=== PATIENT | male | born 1930 | race Hispanic/Latino ===

== ENCOUNTER → 2019-09-27 | Day surgery (SDC) | payer MEDICARE, BC ==
[~2019-09-27] MED LIST: AMLODIPINE BESYL5 MG PO; ASPIR 8181 MG PO; CEPACOL SORE THROAT LOZENGES PO ONE; FLOMAX0.4 MG PO; KETAMINE HCL INJ 50 MG/ML 10 ML VIAL ONE; PANTOPRAZOLE 40 MG 10ML VIAL ONE; PROPOFOL IV EMULSION 10 MG/ML 50 ML VIAL ONE
[2019-09-27 13:52] LABS: BASOPHILS # (AUTO) 0.1 (0.0-0.1); BASOPHILS % 0.8 % (0.0-1.0); EOSINOPHILS # (AUTO) 0.1 (0.0-0.4); EOSINOPHILS % 1.9 % (0.0-6.0); HEMATOCRIT 42.3 % (38.2-49.6); HEMOGLOBIN 14.3 g/dL (14.0-18.0); LYMPHOCYTES # (AUTO) 1.6 (1.0-3.2); LYMPHOCYTES % 21.9 % (18.0-39.1); MEAN CORPUSCULAR HEMOGLOBIN 29.5 pg (28-32); MEAN CORPUSCULAR HGB CONC 33.8 g/dL (31-35); MEAN CORPUSCULAR VOLUME 87.2 fL (81-99); MONOCYTES # (AUTO) 0.6 (0.2-0.8); MONOCYTES % 8.5 % (4.4-11.3); NEUTROPHILS # (AUTO) 4.9 (2.1-6.9); NEUTROPHILS % 66.5 % (38.7-80.0); PLATELET COUNT 203 x10e3/uL (140-360); RED BLOOD COUNT 4.85 x10e6/uL (4.3-5.7); RED CELL DISTRIBUTION WIDTH 14.5 % (11.7-14.4)
[2019-09-27 18:05] VITALS: BP 161/83
--- NOTE | 2019-09-27 23:50 | Operative Report ---
DATE OF PROCEDURE: 09/27/2019 SURGEON: Mario Rodríguez MD PROCEDURE: EGD with biopsies. INDICATIONS FOR EGD: Acid reflux. MEDICATIONS: The patient was done under MAC, please see anesthesiologist's note. PROCEDURE IN DETAIL: With the patient in lateral decubitus position, a flexible fiberoptic Olympus gastroscope was introduced into the esophagus under direct visualization without any difficulty. Two erosions were noted in the distal esophagus and the scope was then advanced with ease into the stomach traversing a small sliding hiatal hernia. Mucosa overlying the antrum and the body revealed some patchy erythema and low-grade to moderate edema. Biopsies were obtained and sent to stain for H pylori. Pylorus was of normal contour and shape was intubated with ease and the scope was advanced all the way to the second portion of the duodenum. The scope was then withdrawn slowly, mucosa overlying the proximal second portion and duodenal bulb grossly appeared to be within normal limits. The scope was then withdrawn back into the stomach and retroflexed, mucosa overlying the fundus and the cardia appeared to be within normal limits. The scope was then straightened out, it was subsequently withdrawn. The patient tolerated procedure well. IMPRESSION: 1. Erosive esophagitis. 2. Small sliding hiatal hernia. 3. Gastritis, biopsied, biopsies sent to stain for H pylori. PLAN: Follow up histology. Initiate Protonix 40 mg one p.o. q.a.m. a.c. Mario Rodríguez MD [facility] [place]/[facility] /[id number] cc: Mario Rodríguez MD
== END | disposition home or self-care (01) ==
LOC: OR 12:49
PROVIDERS: ATTEND Internal Medicine Gastroenterology
DX: K21.0 Gastro-esophageal reflux disease with esophagitis (principal); K29.50 Unspecified chronic gastritis without bleeding; K22.10 Ulcer of esophagus without bleeding; K44.9 Diaphragmatic hernia without obstruction or gangrene; I10 Essential (primary) hypertension; Z85.46 Personal history of malignant neoplasm of prostate; Z95.1 Presence of aortocoronary bypass graft; Z88.8 Allergy status to other drugs, medicaments and biological substances; I25.10 Atherosclerotic heart disease of native coronary artery without angina pectoris; Z01.810 Encounter for preprocedural cardiovascular examination; Z01.812 Encounter for preprocedural laboratory examination
CPT/HCPCS: 36415; 43239; 85025; 88305; 88312; 93005; C9113; J2704

== ENCOUNTER → 2020-06-13 | Outpatient (CLI) | payer MEDICARE, BC ==
[~2020-06-13] MED LIST changes: -CEPACOL SORE THROAT LOZENGES PO ONE; -KETAMINE HCL INJ 50 MG/ML 10 ML VIAL ONE; -PANTOPRAZOLE 40 MG 10ML VIAL ONE; -PROPOFOL IV EMULSION 10 MG/ML 50 ML VIAL ONE
--- NOTE | 2020-06-13 15:31 | Diagnostic Imaging Report ---
CT of the abdomen and pelvis, without contrast, 06/13/2020. History: Abdominal pain and bloating. Comparison: None available. Technique: Multidetector CT scanning of the abdomen and pelvis was performed from the level of the lung bases to the inferior pubic rami without intravenous or oral contrast. Coronal and sagittal multiplanar reformations were obtained. RADIATION DOSE: Total DLP: 207 mGy*cm Dose modulation, iterative reconstruction, and/or weight based adjustment of the mA/kV was utilized to reduce the radiation dose to as low as reasonably achievable. Discussion: Examination is limited without contrast. Lung bases: No visualized abnormalities. Abdomen: Cholecystectomy clips are present. Multiple simple bilateral renal cysts are present, the largest on the right measuring 6.2 cm and the largest on the left measuring 4.8 cm. The liver, biliary tree, spleen, pancreas, and adrenal glands are unremarkable. The abdominal aorta is mildly calcified but within normal limits for size. There is no bowel dilatation. There is no evidence of adenopathy or free fluid. A fat-containing supraumbilical ventral hernia is present with a 3 cm base. Pelvis: The bladder and prostate are unremarkable. There is no evidence of free fluid or adenopathy. Fat-containing inguinal hernias are present bilaterally. Bones and soft tissues: Degenerative changes are present throughout the lumbar spine without evidence of lytic or sclerotic lesion. IMPRESSION: 1. Bilateral benign appearing renal cysts. 2. Fat-containing ventral and inguinal hernias. 3. Status post cholecystectomy. Otherwise unremarkable noncontrast exam. Signed by: Rufino Godfrey on 06/13/2020 3:28 PM
== END ==
LOC: CT 13:32
PROVIDERS: ATTEND Internal Medicine Gastroenterology
DX: R10.84 Generalized abdominal pain (principal)
CPT/HCPCS: 74176

== ENCOUNTER 2020-12-24 15:27 | Inpatient (IN) | payer MEDICARE, BC ==
[~2020-12-24] VITALS: Ht 162.6 cm; Wt 74.8 kg
[2020-12-24] MEDS ORDERED: DIATRIZOATE MEGL/DIATRIZOA SOD 30 ML BTL PO ONE (15:58)
[2020-12-24] MEDS ORDERED: HYDROCHLOROTHIA25 MG (16:05)
[2020-12-24] MEDS ORDERED: FAMOTIDINE 20 MG/2 ML VIAL IV STA (16:31)
[2020-12-24] MEDS ORDERED: ONDANSETRON HCL INJ 2MG/ML 2ML 2 MG/ML VIAL IV STA (16:31)
[2020-12-24] MEDS ORDERED: MORPHINE SULFATE INJ 2 MG/ML SYR IV STA (16:31)
[2020-12-24] MEDS ORDERED: SODIUM CHLORIDE 0.9% 1000ML 1,000 ML IV SCH (16:45)
[2020-12-24] MEDS ORDERED: SODIUM CHLORIDE 0.9% 1000ML 1,000 ML ONE (16:55)
[2020-12-24] MEDS ORDERED: MORPHINE SULFATE INJ 4 MG/ML INJ 1ML ONE (16:55)
[2020-12-24] MEDS ORDERED: ONDANSETRON HCL INJ 2MG/ML 2ML 2 MG/ML VIAL ONE (16:55)
[2020-12-24] MEDS ORDERED: FAMOTIDINE 20 MG/2 ML VIAL IV ONE (16:55)
[2020-12-24 20:23] VITALS: BP 150/92
[2020-12-24] MEDS: SODIUM CHLORIDE 0.9% 1000ML 1,000 ML IV SCH (21:06)
[2020-12-24] MEDS: ONDANSETRON HCL INJ 2MG/ML 2ML 2 MG/ML VIAL IV PRN (21:40)
[2020-12-24] MEDS: HYDROMORPHONE 1MG/1ML INJ IV PRN (21:40)
[2020-12-24 22:18] VITALS: BP 150/92
[2020-12-24 22:28] VITALS: BP 150/92
[2020-12-24] MEDS: PIPERACILLIN/TAZOBAC 3.375 GM in SODIUM CHLORIDE 0.9% 50ML 50 ML IV SCH (23:53)
[2020-12-25] VITALS (8 sets, daily range): BP systolic 140–179; BP diastolic 79–84
[2020-12-25] MEDS ORDERED: PIPER-TAZ 3.375 GM / NS 50ML IV SCH
[2020-12-25 01:13] LABS: CREATINE KINASE MB 4.4 ng/mL (0-5.0)
[2020-12-25 05:10] LABS: BASOPHILS % 0.4 % (0.0-1.0); EOSINOPHILS # (AUTO) 0.1 (0.0-0.4); EOSINOPHILS % 0.6 % (0.0-6.0); HEMATOCRIT 38.5 % (38.2-49.6); HEMOGLOBIN 13.3 g/dL (14.0-18.0); LYMPHOCYTES % 8.7 % (18.0-39.1); MEAN CORPUSCULAR HEMOGLOBIN 30.9 pg (28-32); MEAN CORPUSCULAR HGB CONC 34.5 g/dL (31-35); MEAN CORPUSCULAR VOLUME 89.5 fL (81-99); MONOCYTES # (AUTO) 0.8 (0.2-0.8); MONOCYTES % 6.7 % (4.4-11.3); NEUTROPHILS # (AUTO) 9.5 (2.1-6.9); NEUTROPHILS % 83.3 % (38.7-80.0); PLATELET COUNT 192 x10e3/uL (140-360)
[2020-12-25] MEDS: SODIUM CHLORIDE 0.9% 1000ML 1,000 ML IV SCH ×2 (05:15→15:15)
[2020-12-25] MEDS: PIPERACILLIN/TAZOBAC 3.375 GM in SODIUM CHLORIDE 0.9% 50ML 50 ML IV SCH ×4 (05:32→23:21)
[2020-12-25] MEDS: ONDANSETRON HCL INJ 2MG/ML 2ML 2 MG/ML VIAL IV PRN ×4 (05:32→22:30)
[2020-12-25 05:33] LABS: ALBUMIN 3.1 g/dL (3.5-5.0); ANION GAP 13.6 mmol/L (8-16); CALCIUM 9.4 mg/dL (8.4-10.2); CREATININE, SERUM 1.17 mg/dL (0.72-1.25); POTASSIUM 3.6 mmol/L (3.5-5.1)
[2020-12-25] MEDS: HYDROMORPHONE 1MG/1ML INJ IV PRN ×4 (06:15→22:30)
[2020-12-25] MEDS ORDERED: BENZOCAINE/TETRACAINE/BUTAMBEN AERO SPRAY 56 GM CAN TOP ONE (12:15)
[2020-12-25] MEDS: SODIUM CHLORIDE 0.9% 250ML IRRIG IR SCH ×4 (12:15→23:21)
[2020-12-25 12:31] LABS: CREATINE KINASE MB 2.9 ng/mL (0-5.0)
[2020-12-25] MEDS ORDERED: AMLODIPINE BESYLATE 5 MG TAB ONE (13:03)
[2020-12-25] MEDS: BISACODYL 10 MG SUPP PR SCH (22:09)
[2020-12-26] VITALS (8 sets, daily range): BP systolic 155–180; BP diastolic 67–82
[2020-12-26] MEDS: HYDROMORPHONE 1MG/1ML INJ IV PRN ×4 (03:07→18:05)
[2020-12-26] MEDS: ONDANSETRON HCL INJ 2MG/ML 2ML 2 MG/ML VIAL IV PRN ×4 (03:07→18:05)
[2020-12-26] MEDS: SODIUM CHLORIDE 0.9% 250ML IRRIG IR SCH ×5 (04:15→19:28)
[2020-12-26] MEDS: SODIUM CHLORIDE 0.9% 1000ML 1,000 ML IV SCH ×4 (05:00→19:25)
[2020-12-26] MEDS: PIPERACILLIN/TAZOBAC 3.375 GM in SODIUM CHLORIDE 0.9% 50ML 50 ML IV SCH ×3 (05:47→18:13)
[2020-12-26] MEDS: AMLODIPINE BESYLATE 5 MG TAB PO SCH (08:00)
[2020-12-26] MEDS: BISACODYL 10 MG SUPP PR SCH ×2 (08:00→21:18)
[2020-12-26] MEDS: METOPROLOL TARTRATE INJ 1 MG/ML VIAL IV PRN (21:14)
[2020-12-27] VITALS (14 sets, daily range): BP systolic 133–177; BP diastolic 55–115
[2020-12-27] MEDS: PIPERACILLIN/TAZOBAC 3.375 GM in SODIUM CHLORIDE 0.9% 50ML 50 ML IV SCH ×4 (00:05→20:56)
[2020-12-27] MEDS: SODIUM CHLORIDE 0.9% 250ML IRRIG IR SCH ×6 (00:15→22:32)
[2020-12-27] MEDS: ONDANSETRON HCL INJ 2MG/ML 2ML 2 MG/ML VIAL IV PRN ×3 (03:15→23:19)
[2020-12-27] MEDS: HYDROMORPHONE 1MG/1ML INJ IV PRN ×4 (03:15→23:17)
[2020-12-27] MEDS: SODIUM CHLORIDE 0.9% 1000ML 1,000 ML IV SCH ×2 (03:51→17:15)
[2020-12-27 05:47] LABS: BASOPHILS % 0.3 % (0.0-1.0); EOSINOPHILS # (AUTO) 0.1 (0.0-0.4); EOSINOPHILS % 1.3 % (0.0-6.0); HEMATOCRIT 38.8 % (38.2-49.6); HEMOGLOBIN 13.1 g/dL (14.0-18.0); LYMPHOCYTES # (AUTO) 0.9 (1.0-3.2); LYMPHOCYTES % 9.2 % (18.0-39.1); MEAN CORPUSCULAR HEMOGLOBIN 30.6 pg (28-32); MEAN CORPUSCULAR HGB CONC 33.8 g/dL (31-35); MEAN CORPUSCULAR VOLUME 90.7 fL (81-99); MONOCYTES # (AUTO) 0.9 (0.2-0.8); NEUTROPHILS % 79.7 % (38.7-80.0); PLATELET COUNT 160 x10e3/uL (140-360); RED BLOOD COUNT 4.28 x10e6/uL (4.3-5.7); RED CELL DISTRIBUTION WIDTH 13.7 % (11.7-14.4)
[2020-12-27 06:17] LABS: ALANINE AMINOTRANSFERASE 26 IU/L (0-55); ALBUMIN 2.9 g/dL (3.5-5.0); ALBUMIN/GLOBULIN RATIO 0.9 (0.8-2.0); ALKALINE PHOSPHATASE 62 IU/L (40-150); BLOOD UREA NITROGEN 28 mg/dL (7-26); BUN/CREATININE RATIO 30 (6-25); CALCIUM 8.7 mg/dL (8.4-10.2); CARBON DIOXIDE 25 mmol/L (22-29); CHLORIDE 110 mmol/L (98-107); CREATININE, SERUM 0.94 mg/dL (0.72-1.25); EST GLOMERULAR FILTRATION RATE > 60 ML/MIN (60-); GLUCOSE 114 mg/dL (74-118); SODIUM 145 mmol/L (136-145)
[2020-12-27] MEDS: METOPROLOL TARTRATE INJ 1 MG/ML VIAL IV PRN ×2 (08:56→16:04)
[2020-12-27] MEDS: AMLODIPINE BESYLATE 5 MG TAB PO SCH (09:00)
[2020-12-27] MEDS ORDERED: POTASSIUM CHLORIDE 20MEQ/100ML 100 ML IV ONE (09:35)
[2020-12-27] MEDS ORDERED: SODIUM CHLORIDE 0.9% 250ML 250 ML ONE (09:50)
[2020-12-27] MEDS: BISACODYL 10 MG SUPP PR SCH (11:12)
[2020-12-27] MEDS ORDERED: HEPARIN SOD/SOD CHLORIDE 1,000 ML ONE (11:45)
[2020-12-27] MEDS ORDERED: ONDANSETRON HCL INJ 2MG/ML 2ML 2 MG/ML VIAL ONE (12:10)
[2020-12-27] MEDS ORDERED: LIDOCAINE HCL 2% LOCAL INJ 5 ML SDV VIAL INJ ONE (12:10)
[2020-12-27] MEDS ORDERED: GLYCOPYRROLATE INJ 0.2 MG/ML VIAL ONE (12:10)
[2020-12-27] MEDS ORDERED: ROCURONIUM BROMIDE 10 MG/ML 5ML VIAL IV ONE (12:10)
[2020-12-27] MEDS ORDERED: NEOSTIGMINE 1 MG/ML 10ML VIAL ONE (12:10)
[2020-12-27] MEDS ORDERED: SUCCINYLCHOLINE CHLORIDE 20 MG/ML 10ML VIAL ONE (12:10)
[2020-12-27] MEDS ORDERED: SEVOFLURANE INHAL SOLN 250 ML PEN BTL ONE (12:10)
[2020-12-27] MEDS ORDERED: LIDOCAINE HCL 2% JELLY 5 ML TUBE ONE (12:10)
[2020-12-27] MEDS ORDERED: PROPOFOL IV EMULSION 10 MG/ML 20 ML VIAL ONE (12:10)
[2020-12-27] MEDS ORDERED: FENTANYL CITRATE/PF 100MCG/2 ML INJ ONE ×2 (13:00→14:45)
[2020-12-27] MEDS ORDERED: MORPHINE SULFATE INJ 10 MG/ML ONE (13:00)
[2020-12-27] MEDS ORDERED: SUGAMMADEX SODIUM 200 MG/2 ML VIAL IV ONE (14:06)
[2020-12-27] MEDS ORDERED: ACETAMINOPHEN 1000 MG/100 ML IV PRN (14:30)
[2020-12-27] MEDS ORDERED: HYDROMORPHONE 1MG/1ML INJ ONE (15:09)
[2020-12-27] MEDS: PANTOPRAZOLE 40 MG 10ML VIAL IV SCH (16:04)
[2020-12-27] MEDS: CLONIDINE HCL 0.2 MG/24 HR 1 EA PATCH TOP SCH (19:38)
[2020-12-28] VITALS (25 sets, daily range): BP systolic 135–212; BP diastolic 66–123
[2020-12-28] MEDS: SODIUM CHLORIDE 0.9% 250ML IRRIG IR SCH ×7 (02:08→22:19)
[2020-12-28] MEDS: HYDROMORPHONE 1MG/1ML INJ IV PRN ×6 (02:37→20:14)
[2020-12-28] MEDS: PIPERACILLIN/TAZOBAC 3.375 GM in SODIUM CHLORIDE 0.9% 50ML 50 ML IV SCH ×4 (02:49→20:41)
[2020-12-28] MEDS: ONDANSETRON HCL INJ 2MG/ML 2ML 2 MG/ML VIAL IV PRN ×4 (03:12→17:30)
[2020-12-28] MEDS: SODIUM CHLORIDE 0.9% 1000ML 1,000 ML IV SCH ×3 (04:22→22:19)
[2020-12-28 04:34] LABS: BASOPHILS % 0.1 % (0.0-1.0); EOSINOPHILS % 0.1 % (0.0-6.0); HEMATOCRIT 41.1 % (38.2-49.6); HEMOGLOBIN 13.6 g/dL (14.0-18.0); LYMPHOCYTES # (AUTO) 0.8 (1.0-3.2); LYMPHOCYTES % 5.7 % (18.0-39.1); MEAN CORPUSCULAR HGB CONC 33.1 g/dL (31-35); MEAN CORPUSCULAR VOLUME 90.5 fL (81-99); MONOCYTES # (AUTO) 0.8 (0.2-0.8); MONOCYTES % 5.6 % (4.4-11.3); NEUTROPHILS # (AUTO) 11.8 (2.1-6.9); PLATELET COUNT 174 x10e3/uL (140-360); RED BLOOD COUNT 4.54 x10e6/uL (4.3-5.7)
[2020-12-28 04:50] LABS: BLOOD UREA NITROGEN 28 mg/dL (7-26); BUN/CREATININE RATIO 29 (6-25); CALCIUM 7.6 mg/dL (8.4-10.2); CARBON DIOXIDE 20 mmol/L (22-29); CHLORIDE 116 mmol/L (98-107); CREATININE, SERUM 0.97 mg/dL (0.72-1.25); EST GLOMERULAR FILTRATION RATE > 60 ML/MIN (60-); GLUCOSE 99 mg/dL (74-118); SODIUM 147 mmol/L (136-145)
[2020-12-28] MEDS ORDERED: POTASSIUM CHLORIDE 20MEQ/100ML 100 ML IV ONE ×2 (05:15)
[2020-12-28] MEDS: METOPROLOL TARTRATE INJ 1 MG/ML VIAL IV PRN (06:24)
[2020-12-28] MEDS ORDERED: HYDRALAZINE HCL 20 MG/ML VIAL IV STA (07:53)
[2020-12-28] MEDS ORDERED: HYDRALAZINE HCL 20 MG/ML VIAL IV PRN (08:00)
[2020-12-28] MEDS: HYDRALAZINE HCL 20 MG/ML VIAL IV PRN ×2 (11:50→23:47)
[2020-12-28] MEDS: PANTOPRAZOLE 40 MG 10ML VIAL IV SCH (16:28)
[2020-12-28] MEDS ORDERED: ACETAMINOPHEN 1000 MG/100 ML IV PRN (19:45)
[2020-12-28] MEDS: LABETALOL HCL 5 MG/ML 20ML VIAL IV PRN ×3 (20:14→22:10)
[2020-12-28] MEDS: DIPHENHYDRAMINE HCL INJ 50 MG/ML VIAL IV PRN (21:46)
[2020-12-29] VITALS (25 sets, daily range): BP systolic 117–196; BP diastolic 62–94
[2020-12-29] MEDS: DIPHENHYDRAMINE HCL INJ 50 MG/ML VIAL IV PRN ×2 (00:18→03:55)
[2020-12-29] MEDS: HYDROMORPHONE 1MG/1ML INJ IV PRN ×5 (00:18→20:20)
[2020-12-29] MEDS: SODIUM CHLORIDE 0.9% 250ML IRRIG IR SCH ×6 (02:59→20:31)
[2020-12-29] MEDS: PIPERACILLIN/TAZOBAC 3.375 GM in SODIUM CHLORIDE 0.9% 50ML 50 ML IV SCH ×4 (03:41→20:20)
[2020-12-29] MEDS: PROMETHAZINE 12.5MG/ NACL 0.9% 12.5 MG/50 ML BAG IV PRN (03:55)
[2020-12-29] MEDS: LABETALOL HCL 5 MG/ML 20ML VIAL IV PRN (03:56)
[2020-12-29 05:33] LABS: BASOPHILS % 0.3 % (0.0-1.0); EOSINOPHILS % 0.3 % (0.0-6.0); HEMATOCRIT 37.4 % (38.2-49.6); HEMOGLOBIN 12.7 g/dL (14.0-18.0); LYMPHOCYTES # (AUTO) 0.7 (1.0-3.2); LYMPHOCYTES % 4.9 % (18.0-39.1); MEAN CORPUSCULAR HEMOGLOBIN 30.8 pg (28-32); MEAN CORPUSCULAR VOLUME 90.8 fL (81-99); MONOCYTES # (AUTO) 0.8 (0.2-0.8); MONOCYTES % 5.3 % (4.4-11.3); NEUTROPHILS # (AUTO) 12.6 (2.1-6.9); NEUTROPHILS % 87.8 % (38.7-80.0); PLATELET COUNT 158 x10e3/uL (140-360); RED BLOOD COUNT 4.12 x10e6/uL (4.3-5.7); RED CELL DISTRIBUTION WIDTH 14.5 % (11.7-14.4)
[2020-12-29 05:48] LABS: ANION GAP 13.7 mmol/L (8-16); BLOOD UREA NITROGEN 24 mg/dL (7-26); BUN/CREATININE RATIO 30 (6-25); CALCIUM 7.8 mg/dL (8.4-10.2); CARBON DIOXIDE 19 mmol/L (22-29); CHLORIDE 120 mmol/L (98-107); CREATININE, SERUM 0.81 mg/dL (0.72-1.25); EST GLOMERULAR FILTRATION RATE > 60 ML/MIN (60-); GLUCOSE 112 mg/dL (74-118); SODIUM 150 mmol/L (136-145)
[2020-12-29 06:00] LABS: POTASSIUM 2.7 mmol/L (3.5-5.1)
[2020-12-29] MEDS ORDERED: POTASSIUM CHLORIDE 20MEQ/100ML 300 ML IV ONE (10:00)
[2020-12-29] MEDS ORDERED: PANTOPRAZOLE INJ 40 MG in SODIUM CHLORIDE 0.9% 50ML 50 ML IV SCH (11:00)
[2020-12-29] MEDS: HYDRALAZINE HCL 20 MG/ML VIAL IV PRN ×2 (11:05→16:32)
[2020-12-29 11:17] LABS: INR 1.25; PROTHROMBIN TIME 16.5 seconds (11.9-14.5)
[2020-12-29] MEDS ORDERED: PHYTONADIONE 10 MG/ML AMP IV ONE (11:30)
[2020-12-29] MEDS ORDERED: PHYTONADIONE 10MG/ML 20 MG in SODIUM CHLORIDE 0.9% 50ML 50 ML IV ONE (12:00)
[2020-12-29] MEDS: DEXTROSE 5%/0.45% SOD CHL 1,000 ML IV SCH ×2 (12:21→20:20)
[2020-12-29] MEDS ORDERED: ALBUTEROL/IPRATROPIUM 3 ML NEB NEB NR (14:45)
[2020-12-29] MEDS: PANTOPRAZOLE INJ 40 MG in SODIUM CHLORIDE 0.9% 50ML 50 ML IV SCH ×2 (16:05→20:20)
[2020-12-29] MEDS: LORAZEPAM INJ 2 MG/ML VIAL IV PRN (20:20)
[2020-12-29] MEDS ORDERED: SODIUM CHLORIDE 0.9% 50ML 50 ML ONE (20:27)
[2020-12-30] VITALS (18 sets, daily range): BP systolic 141–174; BP diastolic 68–88
[2020-12-30] MEDS: SODIUM CHLORIDE 0.9% 250ML IRRIG IR SCH ×3 (01:23→09:34)
[2020-12-30] MEDS: PIPERACILLIN/TAZOBAC 3.375 GM in SODIUM CHLORIDE 0.9% 50ML 50 ML IV SCH ×4 (01:23→21:11)
[2020-12-30] MEDS: HYDROMORPHONE 1MG/1ML INJ IV PRN ×3 (01:24→21:11)
[2020-12-30] MEDS: DIPHENHYDRAMINE HCL INJ 50 MG/ML VIAL IV PRN (01:24)
[2020-12-30] MEDS: PANTOPRAZOLE INJ 40 MG in SODIUM CHLORIDE 0.9% 50ML 50 ML IV SCH ×5 (01:34→23:02)
[2020-12-30] MEDS: PROMETHAZINE 12.5MG/ NACL 0.9% 12.5 MG/50 ML BAG IV PRN (01:44)
[2020-12-30 04:34] LABS: ALANINE AMINOTRANSFERASE 21 IU/L (0-55); ALBUMIN 2.3 g/dL (3.5-5.0); ALBUMIN/GLOBULIN RATIO 0.8 (0.8-2.0); ALKALINE PHOSPHATASE 48 IU/L (40-150); BLOOD UREA NITROGEN 26 mg/dL (7-26); BUN/CREATININE RATIO 29 (6-25); CALCIUM 7.8 mg/dL (8.4-10.2); CARBON DIOXIDE 21 mmol/L (22-29); CHLORIDE 122 mmol/L (98-107); CREATININE, SERUM 0.89 mg/dL (0.72-1.25); EST GLOMERULAR FILTRATION RATE > 60 ML/MIN (60-); GLUCOSE 141 mg/dL (74-118); MAGNESIUM 2.1 MG/DL (1.3-2.1); PHOSPHORUS 0.8 MG/DL (2.3-4.7); SODIUM 152 mmol/L (136-145)
[2020-12-30] MEDS ORDERED: POTASSIUM CHLORIDE 20MEQ/100ML 300 ML IV ONE (05:30)
[2020-12-30] MEDS: LORAZEPAM INJ 2 MG/ML VIAL IV PRN (06:28)
[2020-12-30] MEDS: DEXTROSE 5%/0.45% SOD CHL 1,000 ML IV SCH (06:28)
[2020-12-30 08:19] LABS: BASOPHILS % 0.3 % (0.0-1.0); EOSINOPHILS # (AUTO) 0.3 (0.0-0.4); HEMATOCRIT 34.3 % (38.2-49.6); HEMOGLOBIN 11.5 g/dL (14.0-18.0); LYMPHOCYTES % 7.3 % (18.0-39.1); MEAN CORPUSCULAR HEMOGLOBIN 30.3 pg (28-32); MEAN CORPUSCULAR HGB CONC 33.5 g/dL (31-35); MEAN CORPUSCULAR VOLUME 90.3 fL (81-99); MONOCYTES # (AUTO) 0.8 (0.2-0.8); MONOCYTES % 5.6 % (4.4-11.3); NEUTROPHILS # (AUTO) 11.7 (2.1-6.9); NEUTROPHILS % 83.4 % (38.7-80.0); PLATELET COUNT 148 x10e3/uL (140-360); RED CELL DISTRIBUTION WIDTH 15.2 % (11.7-14.4)
[2020-12-30] MEDS: POTASSIUM CHLORIDE 20 MEQ in DEXTROSE 5% 1,000 ML IV SCH ×2 (12:30→23:02)
[2020-12-30] MEDS ORDERED: PIPERACILLIN/TAZOBAC 3.375 GM VIAL ONE ×2 (15:50→20:16)
[2020-12-30] MEDS ORDERED: SODIUM CHLORIDE 0.9% 50ML 50 ML ONE ×2 (15:51→17:44)
[2020-12-30] MEDS ORDERED: PANTOPRAZOLE 40 MG 10ML VIAL ONE ×2 (17:44→20:16)
[2020-12-30] MEDS ORDERED: SODIUM CHLORIDE 0.9% 50ML 100 ML ONE (20:17)
[2020-12-30] MEDS: ONDANSETRON HCL INJ 2MG/ML 2ML 2 MG/ML VIAL IV PRN (21:11)
[2020-12-30] MEDS: BISACODYL 10 MG SUPP PR SCH (21:11)
[2020-12-31] VITALS (9 sets, daily range): BP systolic 138–204; BP diastolic 70–97
[2020-12-31] MEDS ORDERED: SODIUM CHLORIDE 0.9% 50ML 100 ML ONE ×2 (03:19→22:25)
[2020-12-31] MEDS ORDERED: PANTOPRAZOLE 40 MG 10ML VIAL ONE ×4 (03:19→22:26)
[2020-12-31] MEDS ORDERED: PIPERACILLIN/TAZOBAC 3.375 GM VIAL ONE (03:19)
[2020-12-31] MEDS: ONDANSETRON HCL INJ 2MG/ML 2ML 2 MG/ML VIAL IV PRN ×2 (03:21→20:58)
[2020-12-31] MEDS: HYDROMORPHONE 1MG/1ML INJ IV PRN ×2 (03:22→20:58)
[2020-12-31] MEDS: PANTOPRAZOLE INJ 40 MG in SODIUM CHLORIDE 0.9% 50ML 50 ML IV SCH ×5 (03:38→22:26)
[2020-12-31] MEDS: PIPERACILLIN/TAZOBAC 3.375 GM in SODIUM CHLORIDE 0.9% 50ML 50 ML IV SCH ×4 (03:38→20:58)
[2020-12-31] MEDS ORDERED: SODIUM CHLORIDE 0.9% 50ML 50 ML ONE (10:18)
[2020-12-31] MEDS: POTASSIUM CHLORIDE 20 MEQ in DEXTROSE 5% 1,000 ML IV SCH ×3 (10:27→22:14)
[2020-12-31] MEDS: BISACODYL 10 MG SUPP PR SCH (10:29)
[2020-12-31] MEDS ORDERED: BISACODYL 10 MG SUPP PR ONE (10:35)
[2020-12-31] MEDS: LABETALOL HCL 5 MG/ML 20ML VIAL IV PRN ×2 (11:49→12:18)
[2021-01-01] VITALS (10 sets, daily range): BP systolic 133–155; BP diastolic 56–69
[2021-01-01] MEDS: PIPERACILLIN/TAZOBAC 3.375 GM in SODIUM CHLORIDE 0.9% 50ML 50 ML IV SCH ×4 (03:26→22:06)
[2021-01-01] MEDS: PANTOPRAZOLE INJ 40 MG in SODIUM CHLORIDE 0.9% 50ML 50 ML IV SCH ×4 (03:26→22:06)
[2021-01-01] MEDS: POTASSIUM CHLORIDE 20 MEQ in DEXTROSE 5% 1,000 ML IV SCH ×2 (03:27→10:23)
[2021-01-01 05:26] LABS: BASOPHILS % 0.4 % (0.0-1.0); EOSINOPHILS # (AUTO) 0.4 (0.0-0.4); EOSINOPHILS % 3.7 % (0.0-6.0); HEMATOCRIT 29.1 % (38.2-49.6); HEMOGLOBIN 9.8 g/dL (14.0-18.0); LYMPHOCYTES # (AUTO) 1.1 (1.0-3.2); LYMPHOCYTES % 11.4 % (18.0-39.1); MEAN CORPUSCULAR HEMOGLOBIN 30.4 pg (28-32); MEAN CORPUSCULAR HGB CONC 33.7 g/dL (31-35); MEAN CORPUSCULAR VOLUME 90.4 fL (81-99); MONOCYTES # (AUTO) 0.6 (0.2-0.8); MONOCYTES % 6.1 % (4.4-11.3); NEUTROPHILS # (AUTO) 7.6 (2.1-6.9); NEUTROPHILS % 77.4 % (38.7-80.0); PLATELET COUNT 97 x10e3/uL (140-360); RED BLOOD COUNT 3.22 x10e6/uL (4.3-5.7); RED CELL DISTRIBUTION WIDTH 15.2 % (11.7-14.4)
[2021-01-01 05:50] LABS: ANION GAP 10.2 mmol/L (8-16); BLOOD UREA NITROGEN 20 mg/dL (7-26); BUN/CREATININE RATIO 24 (6-25); CALCIUM 7.1 mg/dL (8.4-10.2); CARBON DIOXIDE 21 mmol/L (22-29); CHLORIDE 114 mmol/L (98-107); CREATININE, SERUM 0.83 mg/dL (0.72-1.25); EST GLOMERULAR FILTRATION RATE > 60 ML/MIN (60-); GLUCOSE 113 mg/dL (74-118); POTASSIUM 3.2 mmol/L (3.5-5.1); SODIUM 142 mmol/L (136-145)
[2021-01-01] MEDS ORDERED: PANTOPRAZOLE 40 MG 10ML VIAL ONE ×3 (07:38→22:19)
[2021-01-01] MEDS ORDERED: SODIUM CHLORIDE 0.9% 50ML 50 ML ONE ×3 (07:39→22:19)
[2021-01-01] MEDS ORDERED: D5NS/KCL 20MEQ 1,000 ML IV SCH (09:30)
[2021-01-01] MEDS ORDERED: ENOXAPARIN SOD INJ 40 MG/0.4 ML SYR SC SCH (17:00)
[2021-01-01] MEDS: ENOXAPARIN INJ 80 MG/0.8 ML SYR SC SCH (17:16)
[2021-01-01] MEDS ORDERED: DIPHENHYDRAMINE HCL INJ 50 MG/ML VIAL IV PRN (18:20)
[2021-01-01] MEDS ORDERED: DIPHENHYDRAMINE HCL INJ 50 MG/ML VIAL IV ONE (18:20)
[2021-01-01] MEDS ORDERED: METHYLPREDNISOLONE SOD SUCC 125 MG/2ML VIAL IV PRN (18:20)
[2021-01-01] MEDS: ALBUTEROL/IPRATROPIUM 3 ML NEB NEB PRN (19:45)
[2021-01-01] MEDS ORDERED: IOPAMIDOL 370 MG/ML 200 ML INFUS..BTL INJ ONE (21:55)
[2021-01-01] MEDS: HYDROMORPHONE 1MG/1ML INJ IV PRN (22:07)
[2021-01-02] VITALS (9 sets, daily range): BP systolic 135–201; BP diastolic 63–96
[2021-01-02] MEDS: PANTOPRAZOLE INJ 40 MG in SODIUM CHLORIDE 0.9% 50ML 50 ML IV SCH ×5 (01:37→22:30)
[2021-01-02] MEDS ORDERED: SODIUM CHLORIDE 0.9% 50ML 100 ML ONE ×3 (01:42→20:32)
[2021-01-02] MEDS: PIPERACILLIN/TAZOBAC 3.375 GM in SODIUM CHLORIDE 0.9% 50ML 50 ML IV SCH ×4 (02:14→22:31)
[2021-01-02] MEDS: POTASSIUM CHLORIDE 20 MEQ in DEXTROSE 5% 1,000 ML IV SCH (05:37)
[2021-01-02 05:45] LABS: BASOPHILS % 0.2 % (0.0-1.0); EOSINOPHILS % 0.1 % (0.0-6.0); HEMATOCRIT 30.9 % (38.2-49.6); HEMOGLOBIN 10.3 g/dL (14.0-18.0); LYMPHOCYTES # (AUTO) 0.6 (1.0-3.2); MEAN CORPUSCULAR HEMOGLOBIN 30.2 pg (28-32); MEAN CORPUSCULAR HGB CONC 33.3 g/dL (31-35); MEAN CORPUSCULAR VOLUME 90.6 fL (81-99); MONOCYTES # (AUTO) 0.1 (0.2-0.8); NEUTROPHILS # (AUTO) 8.8 (2.1-6.9); NEUTROPHILS % 91.7 % (38.7-80.0); PLATELET COUNT 120 x10e3/uL (140-360); RED BLOOD COUNT 3.41 x10e6/uL (4.3-5.7); RED CELL DISTRIBUTION WIDTH 14.8 % (11.7-14.4)
[2021-01-02] MEDS ORDERED: PANTOPRAZOLE 40 MG 10ML VIAL ONE ×3 (05:47→20:32)
[2021-01-02 06:16] LABS: ANION GAP 12.9 mmol/L (8-16); BLOOD UREA NITROGEN 18 mg/dL (7-26); BUN/CREATININE RATIO 22 (6-25); CALCIUM 7.3 mg/dL (8.4-10.2); CARBON DIOXIDE 19 mmol/L (22-29); CHLORIDE 108 mmol/L (98-107); CREATININE, SERUM 0.83 mg/dL (0.72-1.25); EST GLOMERULAR FILTRATION RATE > 60 ML/MIN (60-); GLUCOSE 165 mg/dL (74-118); POTASSIUM 3.9 mmol/L (3.5-5.1); SODIUM 136 mmol/L (136-145)
[2021-01-02 06:37] LABS: % IRON SATURATION 13 % (15-50); IRON 26 ug/dL (65-175); TOTAL IRON BINDING CAPACITY 193 ug/dL (261-478); TRANSFERRIN 138 mg/dL (174-364)
[2021-01-02] MEDS ORDERED: FENTANYL CITRATE/PF 100MCG/2 ML INJ ONE (10:16)
[2021-01-02] MEDS ORDERED: MIDAZOLAM HCL 2 MG/2 ML VIAL ONE (10:16)
[2021-01-02] MEDS ORDERED: SODIUM CHLORIDE 0.9% 100 ML ONE (10:16)
[2021-01-02] MEDS ORDERED: ALTEPLASE RECOMBINANT 2 MG/2 ML VIAL ONE ×2 (10:16→10:21)
[2021-01-02] MEDS ORDERED: SODIUM CHLORIDE 0.9% 500ML 500 ML ONE (10:17)
[2021-01-02] MEDS ORDERED: IOPAMIDOL 370 MG/ML 200 ML INFUS..BTL INJ ONE (10:17)
[2021-01-02] MEDS ORDERED: HEPARIN SOD/SOD CHLORIDE 2,000 ML ONE (10:17)
[2021-01-02] MEDS ORDERED: LIDOCAINE HCL 2% LOCAL 20 ML VIAL ONE ×2 (10:17→11:40)
[2021-01-02] MEDS ORDERED: SODIUM CHLORIDE 0.9% 1000ML 1,000 ML ONE ×2 (10:17→20:48)
[2021-01-02] MEDS ORDERED: METHYLPREDNISOLONE SOD SUCC 125 MG/2ML VIAL ONE (10:59)
[2021-01-02] MEDS ORDERED: DIPHENHYDRAMINE HCL INJ 50 MG/ML VIAL ONE (10:59)
[2021-01-02] MEDS ORDERED: HYDRALAZINE HCL 20 MG/ML VIAL IV SCH (16:30)
[2021-01-02] MEDS: ENOXAPARIN INJ 80 MG/0.8 ML SYR SC SCH (17:39)
[2021-01-02] MEDS: HYDRALAZINE HCL 20 MG/ML VIAL IV SCH (17:39)
[2021-01-02] MEDS ORDERED: FUROSEMIDE INJ 10 MG/ML 4 ML VIAL ONE (18:03)
[2021-01-02] MEDS ORDERED: FUROSEMIDE INJ 10 MG/ML 2 ML VIAL IV ONE (18:30)
[2021-01-03] VITALS (7 sets, daily range): BP systolic 139–165; BP diastolic 57–81
[2021-01-03] MEDS ORDERED: DEXTROSE 5% 2,000 ML IV ONE (00:27)
[2021-01-03] MEDS: POTASSIUM CHLORIDE 20 MEQ in DEXTROSE 5% 1,000 ML IV SCH (00:31)
[2021-01-03] MEDS: PANTOPRAZOLE INJ 40 MG in SODIUM CHLORIDE 0.9% 50ML 50 ML IV SCH ×5 (00:31→21:40)
[2021-01-03] MEDS ORDERED: D5NS/KCL 20MEQ 1,000 ML IV ONE (00:34)
[2021-01-03] MEDS: DIPHENHYDRAMINE HCL INJ 50 MG/ML VIAL IV PRN ×2 (00:59→01:33)
[2021-01-03] MEDS: LORAZEPAM INJ 2 MG/ML VIAL IV PRN (01:33)
[2021-01-03] MEDS: ALBUTEROL/IPRATROPIUM 3 ML NEB NEB PRN ×2 (02:02→11:10)
[2021-01-03] MEDS: PIPERACILLIN/TAZOBAC 3.375 GM in SODIUM CHLORIDE 0.9% 50ML 50 ML IV SCH ×4 (03:04→21:40)
[2021-01-03] MEDS: HYDRALAZINE HCL 20 MG/ML VIAL IV SCH ×4 (04:08→18:00)
[2021-01-03 09:02] LABS: BASOPHILS % 0.3 % (0.0-1.0); EOSINOPHILS # (AUTO) 0.1 (0.0-0.4); EOSINOPHILS % 0.9 % (0.0-6.0); HEMATOCRIT 28.5 % (38.2-49.6); HEMOGLOBIN 9.9 g/dL (14.0-18.0); LYMPHOCYTES # (AUTO) 1.3 (1.0-3.2); LYMPHOCYTES % 8.6 % (18.0-39.1); MEAN CORPUSCULAR HEMOGLOBIN 30.1 pg (28-32); MEAN CORPUSCULAR HGB CONC 34.7 g/dL (31-35); MEAN CORPUSCULAR VOLUME 86.6 fL (81-99); MONOCYTES % 6.4 % (4.4-11.3); NEUTROPHILS # (AUTO) 12.6 (2.1-6.9); NEUTROPHILS % 82.1 % (38.7-80.0); PLATELET COUNT 172 x10e3/uL (140-360); RED BLOOD COUNT 3.29 x10e6/uL (4.3-5.7); RED CELL DISTRIBUTION WIDTH 14.5 % (11.7-14.4)
[2021-01-03 09:18] LABS: NEUTROPHILS % (MANUAL) 86 % (40-74)
[2021-01-03 09:31] LABS: BAND NEUTROPHILS % (MANUAL) 0 %
[2021-01-03 09:32] LABS: LYMPHOCYTES % (MANUAL) 7 % (19-48); MONOCYTES % (MANUAL) 7 % (3.4-9.0)
[2021-01-03] MEDS ORDERED: PANTOPRAZOLE 40 MG 10ML VIAL ONE ×3 (09:36→21:29)
[2021-01-03] MEDS ORDERED: SODIUM CHLORIDE 0.9% 50ML 50 ML ONE ×3 (09:36→21:30)
[2021-01-03 09:55] LABS: ALANINE AMINOTRANSFERASE 28 IU/L (0-55); ALBUMIN 2.2 g/dL (3.5-5.0); ALBUMIN/GLOBULIN RATIO 0.8 (0.8-2.0); ALKALINE PHOSPHATASE 82 IU/L (40-150); ANION GAP 10.7 mmol/L (8-16); BLOOD UREA NITROGEN 21 mg/dL (7-26); BUN/CREATININE RATIO 25 (6-25); CALCIUM 7.4 mg/dL (8.4-10.2); CARBON DIOXIDE 19 mmol/L (22-29); CHLORIDE 112 mmol/L (98-107); CREATININE, SERUM 0.83 mg/dL (0.72-1.25); EST GLOMERULAR FILTRATION RATE > 60 ML/MIN (60-); GLUCOSE 109 mg/dL (74-118); SODIUM 139 mmol/L (136-145)
[2021-01-03 09:58] LABS: POTASSIUM 2.7 mmol/L (3.5-5.1)
[2021-01-03] MEDS ORDERED: APIXAB 2.5 MG TABLET PO SCH (10:00)
[2021-01-03] MEDS ORDERED: POTASSIUM CHLORIDE 20MEQ/100ML 400 ML IV ONE (10:15)
[2021-01-03] MEDS ORDERED: POTASSIUM CHLORIDE 10MEQ EA PO ONE (10:30)
[2021-01-03] MEDS ORDERED: POTASSIUM CHLORIDE 20MEQ/100ML 200 ML IV ONE (10:30)
[2021-01-03] MEDS: ENOXAPARIN INJ 80 MG/0.8 ML SYR SC SCH ×2 (11:00→21:40)
[2021-01-03] MEDS: ALBUTEROL/IPRATROPIUM 3 ML NEB NEB SCH ×2 (15:33→19:47)
[2021-01-03] MEDS: CLONIDINE HCL 0.2 MG/24 HR 1 EA PATCH TOP SCH (19:30)
[2021-01-03] MEDS: MELATONIN 5 MG TABLET PO PRN (23:00)
[2021-01-03] MEDS ORDERED: CYANOCOBALAMIN INJ 1,000 MCG/ML VIAL IM ONE (23:30)
[2021-01-04] VITALS (7 sets, daily range): BP systolic 135–168; BP diastolic 63–83
[2021-01-04] MEDS: ALBUTEROL/IPRATROPIUM 3 ML NEB NEB SCH ×4 (00:40→19:10)
[2021-01-04] MEDS: HYDRALAZINE HCL 20 MG/ML VIAL IV SCH ×4 (00:56→16:51)
[2021-01-04] MEDS: POTASSIUM CHLORIDE 20 MEQ in DEXTROSE 5% 1,000 ML IV SCH ×2 (00:57→17:36)
[2021-01-04] MEDS: PANTOPRAZOLE INJ 40 MG in SODIUM CHLORIDE 0.9% 50ML 50 ML IV SCH ×5 (02:44→22:15)
[2021-01-04] MEDS ORDERED: PANTOPRAZOLE 40 MG 10ML VIAL ONE ×5 (02:47→23:42)
[2021-01-04] MEDS ORDERED: SODIUM CHLORIDE 0.9% 50ML 50 ML ONE ×5 (02:48→23:42)
[2021-01-04 06:07] LABS: BASOPHILS % 0.3 % (0.0-1.0); EOSINOPHILS # (AUTO) 0.3 (0.0-0.4); EOSINOPHILS % 3.1 % (0.0-6.0); HEMATOCRIT 27.9 % (38.2-49.6); HEMOGLOBIN 9.8 g/dL (14.0-18.0); LYMPHOCYTES # (AUTO) 1.4 (1.0-3.2); LYMPHOCYTES % 13.1 % (18.0-39.1); MEAN CORPUSCULAR HEMOGLOBIN 30.5 pg (28-32); MEAN CORPUSCULAR HGB CONC 35.1 g/dL (31-35); MEAN CORPUSCULAR VOLUME 86.9 fL (81-99); MONOCYTES # (AUTO) 0.8 (0.2-0.8); MONOCYTES % 7.5 % (4.4-11.3); NEUTROPHILS # (AUTO) 7.6 (2.1-6.9); NEUTROPHILS % 73.3 % (38.7-80.0); PLATELET COUNT 190 x10e3/uL (140-360); RED BLOOD COUNT 3.21 x10e6/uL (4.3-5.7)
[2021-01-04 06:34] LABS: ALANINE AMINOTRANSFERASE 32 IU/L (0-55); ALBUMIN 2.3 g/dL (3.5-5.0); ALBUMIN/GLOBULIN RATIO 0.9 (0.8-2.0); ALKALINE PHOSPHATASE 92 IU/L (40-150); BLOOD UREA NITROGEN 14 mg/dL (7-26); BUN/CREATININE RATIO 18 (6-25); CALCIUM 7.5 mg/dL (8.4-10.2); CARBON DIOXIDE 20 mmol/L (22-29); CHLORIDE 110 mmol/L (98-107); CREATININE, SERUM 0.78 mg/dL (0.72-1.25); EST GLOMERULAR FILTRATION RATE > 60 ML/MIN (60-); GLUCOSE 90 mg/dL (74-118); SODIUM 138 mmol/L (136-145)
[2021-01-04] MEDS ORDERED: SODIUM CHLORIDE 0.9% 100 ML ONE (08:16)
[2021-01-04] MEDS ORDERED: POTASSIUM CHLORIDE 20 MEQ TAB CR PO STA (08:17)
[2021-01-04] MEDS: ENOXAPARIN INJ 80 MG/0.8 ML SYR SC SCH ×2 (08:57→20:26)
[2021-01-04] MEDS: CYANOCOBALAMIN INJ 1,000 MCG/ML VIAL IM SCH (08:57)
[2021-01-04] MEDS: MORPHINE SULFATE INJ 2 MG/ML SYR IV PRN ×2 (08:57→23:43)
[2021-01-04] MEDS: ONDANSETRON HCL INJ 2MG/ML 2ML 2 MG/ML VIAL IV PRN ×2 (09:02→23:43)
[2021-01-04] MEDS: IRON SUCROSE 100 MG in SODIUM CHLORIDE 0.9% 100 ML 100 ML IV SCH (13:32)
[2021-01-04] MEDS: TRAMADOL/APAP 37.5MG-325MG TAB PO PRN (16:51)
[2021-01-04 17:41] LABS: MAGNESIUM 1.5 MG/DL (1.3-2.1); POTASSIUM 3.5 mmol/L (3.5-5.1)
[2021-01-05] VITALS (8 sets, daily range): BP systolic 129–165; BP diastolic 59–94
[2021-01-05] MEDS: HYDRALAZINE HCL 20 MG/ML VIAL IV SCH ×5 (00:52→23:58)
[2021-01-05] MEDS: ALBUTEROL/IPRATROPIUM 3 ML NEB NEB SCH ×4 (01:10→20:10)
[2021-01-05] MEDS ORDERED: SODIUM CHLORIDE 0.9% 50ML 50 ML ONE ×4 (05:27→16:32)
[2021-01-05] MEDS ORDERED: PANTOPRAZOLE 40 MG 10ML VIAL ONE ×4 (05:27→16:31)
[2021-01-05] MEDS: PANTOPRAZOLE INJ 40 MG in SODIUM CHLORIDE 0.9% 50ML 50 ML IV SCH ×4 (05:36→16:48)
[2021-01-05] MEDS: ENOXAPARIN INJ 80 MG/0.8 ML SYR SC SCH ×2 (08:32→20:30)
[2021-01-05] MEDS: CYANOCOBALAMIN INJ 1,000 MCG/ML VIAL IM SCH (08:32)
[2021-01-05] MEDS: TRAMADOL/APAP 37.5MG-325MG TAB PO PRN (08:33)
[2021-01-05] MEDS: IRON SUCROSE 100 MG in SODIUM CHLORIDE 0.9% 100 ML 100 ML IV SCH (10:36)
[2021-01-05] MEDS ORDERED: SALINE 0.65% NAS SOLN 1 SPRAY BTL PRN (14:30)
[2021-01-05] MEDS: ONDANSETRON HCL INJ 2MG/ML 2ML 2 MG/ML VIAL IV PRN (16:48)
[2021-01-05] MEDS: PROMETHAZINE 12.5MG/ NACL 0.9% 12.5 MG/50 ML BAG IV PRN (17:46)
[2021-01-05] MEDS: POTASSIUM CHLORIDE 20 MEQ in DEXTROSE 5% 1,000 ML IV SCH (20:30)
[2021-01-05] MEDS: MORPHINE SULFATE INJ 2 MG/ML SYR IV PRN (20:30)
[2021-01-05] MEDS: LABETALOL HCL 5 MG/ML 20ML VIAL IV PRN (20:31)
[2021-01-06] MEDS: ALBUTEROL/IPRATROPIUM 3 ML NEB NEB SCH ×5 (01:00→19:53)
[2021-01-06] MEDS ORDERED: BISACODYL 10 MG SUPP PR ONE ×2 (03:30→04:15)
[2021-01-06] MEDS ORDERED: PANTOPRAZOLE 40 MG 10ML VIAL ONE ×4 (03:47→22:07)
[2021-01-06] MEDS ORDERED: SODIUM CHLORIDE 0.9% 50ML 50 ML ONE ×4 (03:47→22:08)
[2021-01-06 04:00] VITALS: BP 121/69
[2021-01-06] MEDS: PANTOPRAZOLE INJ 40 MG in SODIUM CHLORIDE 0.9% 50ML 50 ML IV SCH ×5 (04:15→19:15)
[2021-01-06] MEDS: HYDRALAZINE HCL 20 MG/ML VIAL IV SCH ×3 (05:45→18:19)
[2021-01-06 06:02] LABS: BASOPHILS % 0.3 % (0.0-1.0); EOSINOPHILS # (AUTO) 0.2 (0.0-0.4); EOSINOPHILS % 1.7 % (0.0-6.0); HEMATOCRIT 25.4 % (38.2-49.6); HEMOGLOBIN 8.7 g/dL (14.0-18.0); LYMPHOCYTES # (AUTO) 1.1 (1.0-3.2); LYMPHOCYTES % 10.2 % (18.0-39.1); MEAN CORPUSCULAR HEMOGLOBIN 30.9 pg (28-32); MEAN CORPUSCULAR HGB CONC 34.3 g/dL (31-35); MEAN CORPUSCULAR VOLUME 90.1 fL (81-99); MONOCYTES # (AUTO) 0.6 (0.2-0.8); MONOCYTES % 5.7 % (4.4-11.3); NEUTROPHILS # (AUTO) 8.7 (2.1-6.9); NEUTROPHILS % 80.1 % (38.7-80.0); PLATELET COUNT 245 x10e3/uL (140-360); RED BLOOD COUNT 2.82 x10e6/uL (4.3-5.7); RED CELL DISTRIBUTION WIDTH 15.9 % (11.7-14.4)
[2021-01-06 07:33] VITALS: BP 135/62
[2021-01-06] MEDS: ENOXAPARIN INJ 80 MG/0.8 ML SYR SC SCH (08:57)
[2021-01-06] MEDS: CYANOCOBALAMIN INJ 1,000 MCG/ML VIAL IM SCH (08:57)
[2021-01-06] MEDS: ONDANSETRON HCL INJ 2MG/ML 2ML 2 MG/ML VIAL IV PRN (09:02)
[2021-01-06 09:18] VITALS: BP 135/62
[2021-01-06] MEDS: IRON SUCROSE 100 MG in SODIUM CHLORIDE 0.9% 100 ML 100 ML IV SCH (09:27)
[2021-01-06] MEDS: MORPHINE SULFATE INJ 2 MG/ML SYR IV PRN (09:57)
[2021-01-06 11:14] VITALS: BP 98/72
[2021-01-06 14:28] LABS: HEMATOCRIT 25.9 % (38.2-49.6)
[2021-01-06] MEDS: POTASSIUM CHLORIDE 20 MEQ in DEXTROSE 5% 1,000 ML IV SCH (15:00)
[2021-01-06 15:48] VITALS: BP 124/61
[2021-01-06 20:00] VITALS: BP_SYST 118; BP_SYST 124; BP_SYST 135; BP_DIAS 61; BP_DIAS 62; BP_DIAS 78
[2021-01-06 20:38] LABS: HEMATOCRIT 23.6 % (38.2-49.6); HEMOGLOBIN 8.2 g/dL (14.0-18.0)
[2021-01-06] MEDS: MELATONIN 5 MG TABLET PO PRN (22:10)
[2021-01-07] VITALS (7 sets, daily range): BP systolic 112–151; BP diastolic 40–80
[2021-01-07] MEDS: ALBUTEROL/IPRATROPIUM 3 ML NEB NEB SCH ×6 (01:00→23:50)
[2021-01-07] MEDS: PANTOPRAZOLE INJ 40 MG in SODIUM CHLORIDE 0.9% 50ML 50 ML IV SCH ×5 (01:02→21:13)
[2021-01-07] MEDS ORDERED: PANTOPRAZOLE 40 MG 10ML VIAL ONE ×4 (01:14→21:14)
[2021-01-07] MEDS ORDERED: SODIUM CHLORIDE 0.9% 50ML 50 ML ONE ×4 (01:15→23:43)
[2021-01-07] MEDS: MORPHINE SULFATE INJ 2 MG/ML SYR IV PRN (01:23)
[2021-01-07] MEDS: HYDRALAZINE HCL 20 MG/ML VIAL IV SCH ×4 (06:00→18:08)
[2021-01-07 06:03] LABS: BASOPHILS % 0.4 % (0.0-1.0); EOSINOPHILS # (AUTO) 0.2 (0.0-0.4); EOSINOPHILS % 1.8 % (0.0-6.0); LYMPHOCYTES # (AUTO) 1.5 (1.0-3.2); LYMPHOCYTES % 14.5 % (18.0-39.1); MEAN CORPUSCULAR HEMOGLOBIN 30.1 pg (28-32); MEAN CORPUSCULAR VOLUME 91.3 fL (81-99); MONOCYTES # (AUTO) 0.7 (0.2-0.8); MONOCYTES % 6.4 % (4.4-11.3); NEUTROPHILS % 75.4 % (38.7-80.0); PLATELET COUNT 195 x10e3/uL (140-360); RED BLOOD COUNT 2.19 x10e6/uL (4.3-5.7); RED CELL DISTRIBUTION WIDTH 16.5 % (11.7-14.4)
[2021-01-07 06:17] LABS: HEMOGLOBIN 6.6 g/dL (14.0-18.0)
[2021-01-07] MEDS: POTASSIUM CHLORIDE 20 MEQ in DEXTROSE 5% 1,000 ML IV SCH (06:21)
[2021-01-07 06:33] LABS: ALANINE AMINOTRANSFERASE 125 IU/L (0-55); ALBUMIN/GLOBULIN RATIO 0.8 (0.8-2.0); ALKALINE PHOSPHATASE 111 IU/L (40-150); AMYLASE 98 U/L (25-125); ANION GAP 10.6 mmol/L (8-16); BLOOD UREA NITROGEN 23 mg/dL (7-26); BUN/CREATININE RATIO 24 (6-25); CALCIUM 7.4 mg/dL (8.4-10.2); CARBON DIOXIDE 17 mmol/L (22-29); CHLORIDE 107 mmol/L (98-107); CREATININE, SERUM 0.94 mg/dL (0.72-1.25); EST GLOMERULAR FILTRATION RATE > 60 ML/MIN (60-); GLUCOSE 104 mg/dL (74-118); LIPASE 98 U/L (8-78); POTASSIUM 3.6 mmol/L (3.5-5.1); SODIUM 131 mmol/L (136-145)
[2021-01-07] MEDS ORDERED: SODIUM CHLORIDE 0.9% 250ML 250 ML IV ONE (07:45)
[2021-01-07] MEDS: IRON SUCROSE 100 MG in SODIUM CHLORIDE 0.9% 100 ML 100 ML IV SCH (08:30)
[2021-01-07] MEDS: CYANOCOBALAMIN INJ 1,000 MCG/ML VIAL IM SCH (08:50)
[2021-01-07] MEDS ORDERED: SODIUM CHLORIDE 0.9% 250ML 250 ML ONE ×2 (13:52→18:09)
[2021-01-07] MEDS: FUROSEMIDE INJ 10 MG/ML 2 ML VIAL IV PRN (17:47)
[2021-01-07] MEDS: MELATONIN 5 MG TABLET PO PRN (21:13)
[2021-01-08] MEDS: PANTOPRAZOLE INJ 40 MG in SODIUM CHLORIDE 0.9% 50ML 50 ML IV SCH ×5 (01:15→21:15)
[2021-01-08] MEDS: MORPHINE SULFATE INJ 2 MG/ML SYR IV PRN (02:00)
[2021-01-08] MEDS: POTASSIUM CHLORIDE 20 MEQ in DEXTROSE 5% 1,000 ML IV SCH ×2 (03:16→22:34)
[2021-01-08] MEDS ORDERED: PANTOPRAZOLE 40 MG 10ML VIAL ONE ×4 (03:21→21:29)
[2021-01-08] MEDS ORDERED: SODIUM CHLORIDE 0.9% 100 ML ONE (03:32)
[2021-01-08] MEDS: FUROSEMIDE INJ 10 MG/ML 2 ML VIAL IV PRN (05:00)
[2021-01-08] MEDS: HYDRALAZINE HCL 20 MG/ML VIAL IV SCH ×4 (06:00→17:28)
[2021-01-08 06:15] LABS: BASOPHILS % 0.4 % (0.0-1.0); EOSINOPHILS # (AUTO) 0.2 (0.0-0.4); EOSINOPHILS % 1.7 % (0.0-6.0); HEMATOCRIT 29.1 % (38.2-49.6); HEMOGLOBIN 10.3 g/dL (14.0-18.0); LYMPHOCYTES # (AUTO) 1.2 (1.0-3.2); LYMPHOCYTES % 12.4 % (18.0-39.1); MEAN CORPUSCULAR HEMOGLOBIN 30.5 pg (28-32); MEAN CORPUSCULAR HGB CONC 35.4 g/dL (31-35); MEAN CORPUSCULAR VOLUME 86.1 fL (81-99); MONOCYTES # (AUTO) 0.7 (0.2-0.8); MONOCYTES % 6.9 % (4.4-11.3); NEUTROPHILS # (AUTO) 7.6 (2.1-6.9); NEUTROPHILS % 77.1 % (38.7-80.0); PLATELET COUNT 264 x10e3/uL (140-360); RED BLOOD COUNT 3.38 x10e6/uL (4.3-5.7); RED CELL DISTRIBUTION WIDTH 15.6 % (11.7-14.4)
[2021-01-08] MEDS: ALBUTEROL/IPRATROPIUM 3 ML NEB NEB SCH ×3 (07:00→19:45)
[2021-01-08 07:58] VITALS: BP 116/51
[2021-01-08 08:15] VITALS: BP 116/51
[2021-01-08] MEDS: CYANOCOBALAMIN INJ 1,000 MCG/ML VIAL IM SCH (09:12)
[2021-01-08] MEDS: IRON SUCROSE 100 MG in SODIUM CHLORIDE 0.9% 100 ML 100 ML IV SCH (09:12)
[2021-01-08 11:13] VITALS: BP 123/56
[2021-01-08] MEDS ORDERED: SODIUM CHLORIDE 0.9% 50ML 50 ML ONE ×3 (11:26→21:30)
[2021-01-08 15:21] VITALS: BP 159/66
[2021-01-08 20:00] VITALS: BP 156/66
[2021-01-08] MEDS: TRAMADOL/APAP 37.5MG-325MG TAB PO PRN (21:30)
[2021-01-08] MEDS: MELATONIN 5 MG TABLET PO PRN (22:34)
[2021-01-09] VITALS: BP 135/59
[2021-01-09] MEDS: MORPHINE SULFATE INJ 2 MG/ML SYR IV PRN (01:15)
[2021-01-09] MEDS: PANTOPRAZOLE INJ 40 MG in SODIUM CHLORIDE 0.9% 50ML 50 ML IV SCH ×3 (02:15→12:12)
[2021-01-09] MEDS: ALBUTEROL/IPRATROPIUM 3 ML NEB NEB SCH ×2 (02:40→08:17)
[2021-01-09] MEDS ORDERED: SODIUM CHLORIDE 0.9% 50ML 50 ML ONE (03:30)
[2021-01-09] MEDS ORDERED: PANTOPRAZOLE 40 MG 10ML VIAL ONE ×3 (03:30→12:19)
[2021-01-09] MEDS ORDERED: DIPHENHYDRAMINE HCL 25 MG CAP PO PRN (03:30)
[2021-01-09 04:00] VITALS: BP 107/41
[2021-01-09 05:49] LABS: BASOPHILS % 0.4 % (0.0-1.0); EOSINOPHILS # (AUTO) 0.2 (0.0-0.4); EOSINOPHILS % 1.8 % (0.0-6.0); HEMOGLOBIN 9.1 g/dL (14.0-18.0); LYMPHOCYTES # (AUTO) 1.3 (1.0-3.2); LYMPHOCYTES % 12.3 % (18.0-39.1); MEAN CORPUSCULAR HEMOGLOBIN 30.3 pg (28-32); MEAN CORPUSCULAR VOLUME 86.7 fL (81-99); MONOCYTES # (AUTO) 0.7 (0.2-0.8); MONOCYTES % 6.4 % (4.4-11.3); NEUTROPHILS # (AUTO) 8.1 (2.1-6.9); NEUTROPHILS % 77.9 % (38.7-80.0); PLATELET COUNT 253 x10e3/uL (140-360); RED CELL DISTRIBUTION WIDTH 16.1 % (11.7-14.4)
[2021-01-09] MEDS: HYDRALAZINE HCL 20 MG/ML VIAL IV SCH ×3 (06:00→12:12)
[2021-01-09 06:12] LABS: ALANINE AMINOTRANSFERASE 107 IU/L (0-55); ALBUMIN 1.9 g/dL (3.5-5.0); ALBUMIN/GLOBULIN RATIO 0.8 (0.8-2.0); ALKALINE PHOSPHATASE 100 IU/L (40-150); ANION GAP 9.3 mmol/L (8-16); BLOOD UREA NITROGEN 18 mg/dL (7-26); BUN/CREATININE RATIO 22 (6-25); CALCIUM 7.4 mg/dL (8.4-10.2); CARBON DIOXIDE 20 mmol/L (22-29); CHLORIDE 106 mmol/L (98-107); CREATININE, SERUM 0.83 mg/dL (0.72-1.25); EST GLOMERULAR FILTRATION RATE > 60 ML/MIN (60-); GLUCOSE 104 mg/dL (74-118); POTASSIUM 3.3 mmol/L (3.5-5.1); SODIUM 132 mmol/L (136-145)
[2021-01-09 08:36] VITALS: BP 141/60
[2021-01-09 08:42] VITALS: BP 141/60
[2021-01-09] MEDS: CYANOCOBALAMIN INJ 1,000 MCG/ML VIAL IM SCH (10:13)
[2021-01-09] MEDS: IRON SUCROSE 100 MG in SODIUM CHLORIDE 0.9% 100 ML 100 ML IV SCH (10:13)
[2021-01-09] MEDS ORDERED: POTASSIUM CHLORIDE 10MEQ EA PO ONE (10:15)
[2021-01-09 12:46] VITALS: BP 149/76
== END 2021-01-09 13:20 | DRG 329 ==
LOC: FSED 16:30 → ERHOLD 19:18 → MED/SURG 20:48 → ICU 12-27 16:01 → MED/SURG 12-30 13:41
PROC: 0DB80ZZ Excision of Small Intestine, Open Approach (ICD-10-PCS; principal; 2020-12-27 13:30)
PROC: 06CM3ZZ Extirpation of Matter from Right Femoral Vein, Percutaneous Approach (ICD-10-PCS; 2021-01-02)
PROC: 06H03DZ Insertion of Intraluminal Device into Inferior Vena Cava, Percutaneous Approach (ICD-10-PCS; 2021-01-02)
PROC: 30233N1 Transfusion of Nonautologous Red Blood Cells into Peripheral Vein, Percutaneous Approach (ICD-10-PCS; 2021-01-07)
DX: K56.609 Unspecified intestinal obstruction, unspecified as to partial versus complete obstruction (principal); I26.99 Other pulmonary embolism without acute cor pulmonale; I82.4Z1 Acute embolism and thrombosis of unspecified deep veins of right distal lower extremity; R11.0 Nausea; I12.9 Hypertensive chronic kidney disease with stage 1 through stage 4 chronic kidney disease, or unspecified chronic kidney disease; N18.2 Chronic kidney disease, stage 2 (mild); I25.10 Atherosclerotic heart disease of native coronary artery without angina pectoris; Z95.1 Presence of aortocoronary bypass graft; Z95.2 Presence of prosthetic heart valve; I25.2 Old myocardial infarction; N40.0 Benign prostatic hyperplasia without lower urinary tract symptoms; Z85.46 Personal history of malignant neoplasm of prostate; G47.33 Obstructive sleep apnea (adult) (pediatric); Z20.822 Contact with and (suspected) exposure to COVID-19
CPT/HCPCS: 36415; 37191; 37212; 71045; 71260; 74019; 74022; 74176; 76937; 80048; 80053; 80076; 81003; 82150; 82550; 82553; 82607; 82746; 83540; 83605; 83690; 83735; 83880; 84100; 84132; 84466; 84484; 85014; 85018; 85025; 85045; 85610; 86850; 86900; 86920; 88307; 93005; 93041; 93306; 93971; 94640; 96361; 96374; 96375; 96376; 97139; 99152; 99153; 99284; C1757; C1766; C1769; C1880; C1887; J0330; J0360; J1170; J1200; J1650; J1756; J1940; J2001; J2060; J2250; J2270; J2405; J2543; J2550; J2710; J2930; J2997; J3010; J3420; J3430; J3480; J7030; J7040; J7050; J7070; P9016; Q9967; U0002